=== PATIENT | male | born 1960 ===

== ENCOUNTER 2025-05-03 09:39 | Outpatient (CLI) | payer MEDICARE, SELFPAY ==
--- NOTE | 2025-05-03 09:54 | FL_ITS ---
WS: [id number] FL barium swallow [id number] REASON FOR EXAM: DYSPHAGIA FLUOROSCOPY TIME: 2min [id number] # OF SPOT FILMS: Multiple TECHNIQUE: Patient was unable to stand due to recent bilateral foot surgery. Semirecumbent supine position swallowing with thin barium was monitored fluoroscopically and multiple rapid sequence images obtained. FINDINGS: There are no previous examinations with which to compare. No aspiration. Lung intraluminal stent extending from just below the aorta to near the diaphragm. The majority of the ingested barium flows through the patent stent and into a moderately large hiatal hernia which then empties into the stomach without restriction. Moderate amount of barium interposes between the stent wall and the [place] esophageal wall. From this barium there is a tiny focal projection of barium to the left which ends blindly. Similar but larger projection of barium to the right/posterior. It was difficult to characterize the column of barium through the stent due to the overlap of contrast outside the stent. The lower stent and the contrast outside the stent slowly drained into the hiatal hernia. Delayed due to the lack of peristalsis. FL/FL barium swallow [id number] IMPRESSION: The examination was limited in patient positioning due to recent bilateral foot surgery. The stent is widely patent. There are 2 blind ending projections of barium from the esophagus with no aneudy extravasation. There is some pooling of contrast outside the stent and within the lower stent due to the lack of peristalsis which drained away with time and gravity. Information needed to better interpret the findings in the esophagram require f urther information most importantly: There is distant a covered stent. Was a stent placed through normal esophagus or through an esophageal cancer dandre t had eroded into the mediastinum.
== END 2025-05-03 09:40 | disposition home or self-care (01) ==
LOC: RAD 09:46
PROVIDERS: PCP Internal Medicine; Visit Provider Internal Medicine
DX: R13.10 Dysphagia, unspecified (principal)
CPT/HCPCS: 74220